=== PATIENT | female | born 1965 | race Caucasian/White ===

== ENCOUNTER 2018-05-20 18:07 | Emergency (ER) | payer OTHER ==
[~2018-05-20] VITALS: Ht 162.6 cm; Wt 76.2 kg
[~2018-05-20 18:07] MED LIST: ALPR.5; ALPR1 PO; AMOX875 PO; CETI10 PO; Cephalexin500 MG PO; Clonazepam1 MG PO; ESCI10 PO; HYDACE5 PO; HYDR1TAB94 PO; Hydrocodone-Ap1 EA23 PO; LOSA25 PO; LOSARTAN POTAS100 MG PO; NAPR550 PO; Norco 5-325 Ta1 EACH PO; OLME20; OMEP20ER PO; RABE20; SERT100 PO; VENL75; Zofran Odt4 MG SL
[2018-05-20] MEDS ORDERED: NYST237S MT (18:41)
[2018-05-20] MEDS ORDERED: ALLER-TEC D 5-1 EACH PO (18:45)
[2018-05-20] MEDS ORDERED: ESOM20 (18:45)
== END 2018-05-20 18:50 | disposition home or self-care (01) ==
LOC: ER 18:07
DX: R07.0 Pain in throat (principal); I10 Essential (primary) hypertension; F41.9 Anxiety disorder, unspecified; F17.200 Nicotine dependence, unspecified, uncomplicated; Z88.5 Allergy status to narcotic agent; Z79.899 Other long term (current) drug therapy
CPT/HCPCS: 99282

== ENCOUNTER 2018-09-19 07:07 | Day surgery (SDC) | payer OTHER ==
[~2018-09-19] VITALS: Ht 162.6 cm; Wt 69.8 kg
[~2018-09-19 07:07] MED LIST changes: +ALLER-TEC D 5-1 EACH PO; +ESOM20; +NYST237S MT
== END 2018-09-19 22:45 | disposition home or self-care (01) ==
LOC: ORSCMMR 07:07 → ORD 09:00 → ORSCMMR 22:45 → ORD 09-25 09:00
PROVIDERS: Internal Medicine Gastroenterology
PROC: 0DB48ZX Excision of Esophagogastric Junction, Via Natural or Artificial Opening Endoscopic, Diagnostic (ICD-10-PCS; principal; 2018-09-19 09:00)
PROC: 0DB68ZX Excision of Stomach, Via Natural or Artificial Opening Endoscopic, Diagnostic (ICD-10-PCS; principal; 2018-09-19 09:00)
PROC: 0DB58ZX Excision of Esophagus, Via Natural or Artificial Opening Endoscopic, Diagnostic (ICD-10-PCS; principal; 2018-09-19 09:00)
DX: R13.14 Dysphagia, pharyngoesophageal phase (principal); K44.9 Diaphragmatic hernia without obstruction or gangrene; K21.9 Gastro-esophageal reflux disease without esophagitis; I10 Essential (primary) hypertension; J44.9 Chronic obstructive pulmonary disease, unspecified; F17.210 Nicotine dependence, cigarettes, uncomplicated; F41.9 Anxiety disorder, unspecified; Z79.899 Other long term (current) drug therapy
CPT/HCPCS: 88305; 88342; J7120

== ENCOUNTER → 2020-04-23 | Outpatient (CLI) | payer OTHER | END | disposition home or self-care (01) | LOC: LAB EV 16:25 → LAB SHORT 16:25 | DX: N39.0 Urinary tract infection, site not specified (principal) | CPT/HCPCS: 87086 ==

== ENCOUNTER → 2023-01-05 | Outpatient (CLI) | payer OTHER | END | disposition home or self-care (01) | LOC: LAB SHORT 08:05 → LAB 08:05 | DX: N72 Inflammatory disease of cervix uteri (principal) | CPT/HCPCS: 88305 ==